=== PATIENT | male | born 1980 ===

== ENCOUNTER → 2020-06-27 14:16 | Outpatient (CLI) | payer BC, SELFPAY ==
--- NOTE | ~2020-06-27 | MR_ITS ---
EXAMINATION: MR brain IAC wo/w con DATE: 06/27/2020 15:19 INDICATION: Sensorineural hearing loss. TECHNIQUE: Magnetic resonance imaging (MRI) of the brain, brainstem, and internal auditory canals was performed without and with 15 mL MultiHance intravenous contrast. Sequences included sagittal and ax ial T1-weighted FSE, axial diffusion-weighted FS EPI, axial T2*-weighted GRE, axial T2-weighted FLAIR Propeller, axial T2-weighted Propeller, small lruxn-nm-wtmq coronal FIESTA, small bqucw-jz-tlaj jere nal T1-weighted FSE, and small ictxm-lr-upcm axial T1-weighted SPGR. Postcontrast sequences included axial T1-weighted FSE, small nzahy-cp-ebxp coronal T1-weighted FSE, and small zeqyh-pa-fdaj axial T1- weighted SPGR. Apparent diffusion coefficient (ADC) maps were created. COMPARISON: None. FINDINGS: There is no intracranial hemorrhage, acute infarction, or abnormal intracranial mass lesion . The ventricles are normal in size. There is mild mucosal thickening in the ethmoid sinuses. The orb its are normal. The internal auditory canals are normal. The mastoid air cells are normal. IMPRESSION: 1. Normal brain. Reviewed, dictated and finalized at location A. IMPRESSION: 1. Normal brain.
[2020-06-27 14:46] LABS: Estimated Glomerular Filt Rate > 60
== END ==
DX: H90.5 Unspecified sensorineural hearing loss (principal)
CPT/HCPCS: 36415; 70553; A9577